=== PATIENT | male | born 2000 | race Caucasian/White ===

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

== ENCOUNTER 2018-02-08 14:16 | Observation (INO) | payer OTHER, BC, MEDICAID ==
[2018-02-08] MEDS: NS 1,000 ML IV ×3 (15:13→20:03)
[2018-02-08] MEDS: ONDANSETRON 4MG/2ML VIAL (J2405) IV (15:13)
[2018-02-08] MEDS: KETOROLAC 30 MG/ML VIAL (J1885) IV (15:13)
[2018-02-08 15:15] LABS: BASO % 0.4 % (0.0-1.0); EOS % 0.2 % (0.0-3.0); HEMATOCRIT 44.2 % (42.0-52.0); HEMOGLOBIN 15.6 g/dl (13.5-17.5); IMMATURE GRANULOCYTE % 0.3 % (0-3.0); LYMPH # 0.9 10^3/uL (1.5-6.5); LYMPH % 10.5 % (24.0-44.0); MEAN CORPUSCULAR HEMOGLOBIN 29.8 pg (27.0-33.0); MEAN CORPUSCULAR HGB CONC 35.3 g/dl (32.0-36.5); MEAN CORPUSCULAR VOLUME 84.5 fl (80.0-96.0); MONO # 1.1 10^3/uL (0.0-0.8); MONO % 12.4 % (0.0-5.0); NEUTROPHILS # 6.8 10^3/uL (1.8-7.7); NEUTROPHILS % 76.2 % (36.0-66.0); PLATELET COUNT, AUTOMATED 233 10^3/uL (150-450); RED BLOOD COUNT 5.23 10^6/uL (4.30-6.10); RED CELL DISTRIBUTION WIDTH 13.2 % (11.5-14.5)
[2018-02-08] MEDS: IPRATROPIUM 0.5MG/ALBUTEROL 2.5MG INH SOL UD 3ML (DUONEB)(J7620) NEB (15:25)
[2018-02-08 15:37] LABS: ALBUMIN 3.3 GM/DL (3.2-5.2); ALBUMIN/GLOBULIN RATIO 0.75 (1.00-1.93); ALKALINE PHOSPHATASE 77 U/L (45-117); ALT/SGPT 30 U/L (12-78); ANION GAP 9 MEQ/L (8-16); AST/SGOT 19 U/L (7-37); BILIRUBIN,DIRECT 0.1 MG/DL (0.0-0.2); BILIRUBIN,TOTAL 0.5 MG/DL (0.2-1.0); BLOOD UREA NITROGEN 18 MG/DL (7-18); CALCIUM LEVEL 8.7 MG/DL (8.5-10.1); CARBON DIOXIDE LEVEL 28 MEQ/L (21-32); CHLORIDE LEVEL 99 MEQ/L (98-107); CREATININE FOR GFR 1.25 MG/DL (0.70-1.30); GLUCOSE, FASTING 100 MG/DL (70-100); SODIUM LEVEL 136 MEQ/L (136-145); TOTAL PROTEIN 7.7 GM/DL (6.4-8.2)
[2018-02-08 15:37] LABS: LACTIC ACID SEPSIS PROTOCOL 1.5 MMOL/L (0.4-2.0)
[2018-02-08 15:42] LABS: ABG BASE EXCESS -0.8 (-2.0-2.0); ABG HCO3 22.4 MEQ/L (22.0-26.0); ABG O2 SATURATION 97.4 % (95.0-99.0); ABG PARTIAL PRESSURE CO2 32.8 mmHg (35.0-45.0); ABG PARTIAL PRESSURE O2 88.6 mmHg (75.0-100.0); ABG STANDARD HCO3 23.8 MEQ/L (22.0-26.0); ABG TOTAL CO2 23.4 MEQ/L (22.0-29.0); ABG pH (ARTERIAL) 7.452 UNITS (7.350-7.450)
[2018-02-08] MEDS: cefTRIAXone SOD 1 GM in D5W MINI-BAG PLUS 50 ML IV (17:04)
[2018-02-08] MEDS: AZITHROMYCIN INJ 500 MG, VIAL MATE ADAPTER 1 EACH in D5W 250 ML IV (17:04)
[2018-02-08] MEDS: ACETAMINOPHEN 325 MG TAB PO (17:36)
[2018-02-08] MEDS ORDERED: ONDANSETRON 4MG/2ML VIAL (J2405) IV (18:45)
[2018-02-09] MEDS: ACETAMINOPHEN TAB 650MG DOSE (2X325MG) PO (00:25)
[2018-02-09] MEDS ORDERED: IBUPROFEN 400 MG TAB PO (00:45)
[2018-02-09] MEDS: IPRATROPIUM 0.5MG/ALBUTEROL 2.5MG INH SOL UD 3ML (DUONEB)(J7620) NEB (01:11)
[2018-02-09] MEDS: NS 1,000 ML IV (05:12)
[2018-02-09] MEDS: cefTRIAXone SOD 1 GM in D5W MINI-BAG PLUS 50 ML IV (05:12)
[2018-02-09 06:09] LABS: HEMATOCRIT 38.3 % (42.0-52.0); MEAN CORPUSCULAR HEMOGLOBIN 29.6 pg (27.0-33.0); MEAN CORPUSCULAR VOLUME 84.5 fl (80.0-96.0); PLATELET COUNT, AUTOMATED 196 10^3/uL (150-450); RED BLOOD COUNT 4.53 10^6/uL (4.30-6.10); RED CELL DISTRIBUTION WIDTH 13.5 % (11.5-14.5); WHITE BLOOD COUNT 8.2 10^3/uL (4.0-10.0)
[2018-02-09 06:14] LABS: HEMOGLOBIN 13.4 g/dl (13.5-17.5)
[2018-02-09 06:31] LABS: ALBUMIN 2.6 GM/DL (3.2-5.2); ALKALINE PHOSPHATASE 64 U/L (45-117); ALT/SGPT 25 U/L (12-78); ANION GAP 7 MEQ/L (8-16); AST/SGOT 15 U/L (7-37); BILIRUBIN,TOTAL 0.2 MG/DL (0.2-1.0); BLOOD UREA NITROGEN 16 MG/DL (7-18); CALCIUM LEVEL 8.1 MG/DL (8.5-10.1); CARBON DIOXIDE LEVEL 28 MEQ/L (21-32); CHLORIDE LEVEL 105 MEQ/L (98-107); CREATININE FOR GFR 1.01 MG/DL (0.70-1.30); GLUCOSE, FASTING 97 MG/DL (70-100); POTASSIUM SERUM 4.1 MEQ/L (3.5-5.1); SODIUM LEVEL 140 MEQ/L (136-145); TOTAL PROTEIN 6.3 GM/DL (6.4-8.2)
[2018-02-09] MEDS: ENOXAPARIN 40 MG/0.4 ML SYRINGE (J1650) SC (08:05)
[2018-02-09] MEDS ORDERED: AZITHROMYCIN INJ 500 MG, VIAL MATE ADAPTER 1 EACH in D5W 250 ML IV (17:00)
== END 2018-02-09 11:30 | disposition home or self-care (01) ==
LOC: M ED 14:16 → M ED INP 18:32 → M MSPAV 19:30
DX: J15.7 Pneumonia due to Mycoplasma pneumoniae (principal); J96.01 Acute respiratory failure with hypoxia; F17.220 Nicotine dependence, chewing tobacco, uncomplicated
CPT/HCPCS: J0456

== ENCOUNTER 2018-04-03 12:48 | Emergency (ER) | payer OTHER | END 2018-04-03 15:29 | disposition home or self-care (01) | LOC: M ED 12:48 | DX: S69.91XA Unspecified injury of right wrist, hand and finger(s), initial encounter (principal); X50.0XXA Overexertion from strenuous movement or load, initial encounter; Y92.89 Other specified places as the place of occurrence of the external cause; J45.909 Unspecified asthma, uncomplicated; F17.200 Nicotine dependence, unspecified, uncomplicated | CPT/HCPCS: 73090 ==

== ENCOUNTER 2019-02-16 19:06 | Emergency (ER) | payer OTHER ==
[~2019-02-16] VITALS: Ht 182.9 cm; Wt 97.7 kg
[~2019-02-16 19:06] MED LIST changes: +AZIT500T2 PO; +CEFD1CAP8 PO; +VENTAER IN
[2019-02-16 19:40] LABS: BASO % 0.2 % (0.0-1.0); HEMATOCRIT 43.2 % (42.0-52.0); HEMOGLOBIN 15.5 g/dl (13.5-17.5); LYMPH # 1.2 10^3/uL (1.5-6.5); LYMPH % 6.4 % (24.0-44.0); MEAN CORPUSCULAR HEMOGLOBIN 30.5 pg (27.0-33.0); MEAN CORPUSCULAR HGB CONC 35.9 g/dl (32.0-36.5); MONO # 1.3 10^3/uL (0.0-0.8); MONO % 6.7 % (0.0-5.0); NEUTROPHILS # 16.1 10^3/uL (1.8-7.7); NEUTROPHILS % 86.2 % (36.0-66.0); PLATELET COUNT, AUTOMATED 285 10^3/uL (150-450); RED BLOOD COUNT 5.08 10^6/uL (4.30-6.10); WHITE BLOOD COUNT 18.7 10^3/uL (4.0-10.0)
[2019-02-16 20:05] LABS: ALBUMIN 3.6 GM/DL (3.2-5.2); ALT/SGPT 25 U/L (12-78); BILIRUBIN,DIRECT 0.3 MG/DL (0.0-0.2); BILIRUBIN,TOTAL 0.7 MG/DL (0.2-1.0); BLOOD UREA NITROGEN 14 MG/DL (7-18); CALCIUM LEVEL 9.3 MG/DL (8.5-10.1); CARBON DIOXIDE LEVEL 25 MEQ/L (21-32); CHLORIDE LEVEL 105 MEQ/L (98-107); CREATININE FOR GFR 1.03 MG/DL (0.70-1.30); GLUCOSE, FASTING 90 MG/DL (70-100); LIPASE 74 U/L (73-393); SODIUM LEVEL 138 MEQ/L (136-145); TOTAL PROTEIN 7.4 GM/DL (6.4-8.2)
[2019-02-16] MEDS ORDERED: ONDANSETRON 4MG/2ML VIAL (J2405) IV ONE (22:00)
[2019-02-16] MEDS ORDERED: PANTOPRAZOLE 40MG INJ (PROTONIX) (C9113) IV ONE (22:00)
[2019-02-16] MEDS ORDERED: SUCRALFATE 1 GM TAB PO ONE (22:00)
[2019-02-16] MEDS ORDERED: NS 1,000 ML IV ONE (22:00)
[2019-02-16] MEDS ORDERED: GI COCKTAIL 50ML BTL(HYOSCYAMINE/MAALOX/LIDOCAINE VISCOUS)(1:3:1) PO ONE (22:00)
[2019-02-16] MEDS ORDERED: ISOVUE-370 76% 100ML VIAL (Q9967) As Ordered ONE (22:28)
--- NOTE | 2019-02-16 23:18 | REPVR ---
EXAM: CT Abdomen and Pelvis With Contrast EXAM DATE/TIME: 02/16/2019 10:36 PM CLINICAL HISTORY: 18 years old, male; Abdominal pain; Generalized; Additional info: Bloody diarrhea 2mo, hematemesis TECHNIQUE: Imaging protocol: Axial computed tomography images of the abdomen and pelvis with intravenous contrast. Coronal and sagittal reformatted images were created and reviewed. Radiation optimization: All CT scans at this facility use at least one of these dose optimization techniques: automated exposure control; mA and/or kV adjustment per patient size (includes targeted exams where dose is matched to clinical indication); or iterative reconstruction. Contrast material: ISOVUE 370; Contrast volume: 100 ml; Contrast route: IV; COMPARISON: CT ABD PELVIS W/O CONTRAST 02/07/2016 2:36 PM FINDINGS: ABDOMEN: Liver: There is a diffuse decrease in hepatic parenchymal density, consistent with fatty infiltration. Gallbladder and bile ducts: Normal. No calcified stones. No ductal dilation. Pancreas: Normal. No ductal dilation. Spleen: There is mild splenomegaly with a maximum span of 13 centimeters. No focal abnormalities demonstrated. Adrenals: Normal. No mass. Kidneys and ureters: Cyst left kidney measures 1.7 cm. Stomach and bowel: Mucosal enhancement in the colon most pronounced in the rectosigmoid colon, a finding of uncertain significance. Clinical correlation to exclude colitis suggested. Appendix: There has been an appendectomy. PELVIS: Bladder: Unremarkable as visualized. Reproductive: The prostate gland demonstrates mild hyperplasia. ABDOMEN and PELVIS: Intraperitoneal space: Normal. No free air. No significant fluid collection. Bones/joints: No acute fracture. No dislocation. Soft tissues: Unremarkable. Vasculature: Normal. No abdominal aortic aneurysm. Lymph nodes: Ileocolic lymph nodes measure up to 11 mm. IMPRESSION: 1. There is a diffuse decrease in hepatic parenchymal density, consistent with fatty infiltration. 2. There is mild splenomegaly with a maximum span of 13 centimeters. No focal abnormalities demonstrated. 3. Mucosal enhancement in the colon most pronounced in the rectosigmoid colon, a finding of uncertain significance. Clinical correlation to exclude colitis suggested. 4. Mild prostatic hyperplasia. Electronically signed by: Maury Catalan On 02/16/2019 23:18:27 PM
[2019-02-17] MEDS ORDERED: CIPR-249 PO (00:54)
[2019-02-17] MEDS ORDERED: FLAG500T PO (00:54)
[2019-02-17] MEDS ORDERED: CIPROFLOXACIN 500 MG TAB PO ONE (01:00)
[2019-02-17] MEDS ORDERED: metroNIDAZOLE (FLAGYL) 500 MG TAB PO ONE (01:00)
[2019-02-17 01:07] VITALS: BP 139/79
[2019-02-17] MEDS ORDERED: ZOFR4TAB16 PO (01:24)
--- NOTE | 2019-02-17 10:38 | ED PDOC ---
Post-Departure Follow-Up dr kurtz faxed formal report of ct abd/p for fu Leonard Woody MD Feb 17, 2019 10:38
--- NOTE | 2019-02-17 19:22 | ECGEPIP ---
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
== END 2019-02-17 01:12 | disposition home or self-care (01) ==
LOC: M ED 19:06
DX: A09 Infectious gastroenteritis and colitis, unspecified (principal); K92.1 Melena; K92.0 Hematemesis; E86.0 Dehydration; N28.1 Cyst of kidney, acquired; N40.1 Benign prostatic hyperplasia with lower urinary tract symptoms; R16.1 Splenomegaly, not elsewhere classified; Z90.89 Acquired absence of other organs
CPT/HCPCS: 74177; 80048; 80076; 81001; 83690; 85025; 87507; 93005; 96361; 96374; 96375; 99284; C9113; J2405; Q9967

== ENCOUNTER 2019-03-16 07:10 | Emergency (ER) | payer OTHER ==
[~2019-03-16] VITALS: Ht 182.9 cm; Wt 90.9 kg
[~2019-03-16 07:10] MED LIST changes: +CIPR-249 PO; +ZOFR4TAB16 PO
[2019-03-16] MEDS ORDERED: ACET-683 PO (07:16)
--- NOTE | 2019-03-16 07:46 | REP ---
PA and lateral chest: Comparison is a 02/08/2018. The lung pastor are clear. The cardiac size is normal. The allen, mediastinum, and skeletal structures are unremarkable. Impression: Negative PA and lateral chest. The scattered patchy airspace disease identified previously has resolved. Electronically Signed by Matthias Walls MD 03/16/2019 07:38 A
--- NOTE | 2019-03-16 07:47 | REP ---
Left shoulder three views : There is no fracture or dislocation. Mineralization and joint spaces are normal. There are no calcifications or foreign bodies. Impression: Negative left shoulder . Electronically Signed by Matthias Walls MD 03/16/2019 07:39 A
[2019-03-16] MEDS ORDERED: PERCOCET 5MG/325MG TAB PO ONE (08:00)
[2019-03-16] MEDS ORDERED: ISOVUE-370 76% 100ML VIAL (Q9967) As Ordered ONE (08:02)
--- NOTE | 2019-03-16 08:40 | REP ---
CT of the chest with IV contrast: Comparison is the plain film study performed earlier today. There is no pneumothorax, hemothorax or pulmonary contusion. No clavicle, scapula, sternal, rib or vertebral fractures are identified. The thoracic aorta is unremarkable. There is no mediastinal hematoma. In the upper abdomen the visualized areas of the, pancreas, spleen, adrenals and renal upper poles are unremarkable. Impression: Essentially negative CT study of the chest. Electronically Signed by Matthias Walls MD 03/16/2019 08:31 A
[2019-03-16] MEDS ORDERED: PERC5TAB12 PO (08:41)
--- NOTE | 2019-03-16 08:43 | REP ---
CT of the cervical spine without IV contrast: Comparison is 2009. Axial images are acquired helical scanning and a reformatted sagittal and coronal projections. The vertebral body heights, interspacing alignment are normal. The facets are normally aligned. The prevertebral soft tissues are unremarkable. The skull base, C1 and C2 are unremarkable. There are no posterior element fractures. Impression: There is no fracture or listhesis. Electronically Signed by Matthias Walls MD 03/16/2019 08:34 A
[2019-03-16 09:06] VITALS: BP 141/90
== END 2019-03-16 09:07 | disposition home or self-care (01) ==
LOC: M ED 07:10
DX: S20.212A Contusion of left front wall of thorax, initial encounter (principal); S40.012A Contusion of left shoulder, initial encounter; V86.55XA Driver of 3- or 4- wheeled all-terrain vehicle (ATV) injured in nontraffic accident, initial encounter; Y92.830 Public park as the place of occurrence of the external cause; Z79.899 Other long term (current) drug therapy
CPT/HCPCS: 71046; 71260; 72125; 73030; 99283; Q9967

== ENCOUNTER 2019-10-08 15:19 | Emergency (ER) | payer OTHER ==
[~2019-10-08] VITALS: Ht 182.9 cm; Wt 100.0 kg
[~2019-10-08 15:19] MED LIST changes: +ACET-683 PO; -AZIT500T2 PO; +AZIT500T5 PO; +PERC5TAB12 PO
[2019-10-08 15:56] LABS: BASO % 0.5 % (0.0-1.0); EOS # 0.1 10^3/uL (0.0-0.5); EOS % 1.1 % (0.0-3.0); HEMATOCRIT 46.9 % (42.0-52.0); HEMOGLOBIN 16.5 g/dl (13.5-17.5); LYMPH # 1.8 10^3/uL (1.5-5.0); LYMPH % 21.5 % (24.0-44.0); MEAN CORPUSCULAR HEMOGLOBIN 29.8 pg (27.0-33.0); MEAN CORPUSCULAR HGB CONC 35.2 g/dl (32.0-36.5); MEAN CORPUSCULAR VOLUME 84.8 fl (80.0-96.0); MONO # 0.7 10^3/uL (0.0-0.8); MONO % 8.8 % (0.0-5.0); NEUTROPHILS # 5.6 10^3/uL (1.5-8.5); NEUTROPHILS % 67.7 % (36.0-66.0); PLATELET COUNT, AUTOMATED 310 10^3/uL (150-450); RED BLOOD COUNT 5.53 10^6/uL (4.30-6.10); WHITE BLOOD COUNT 8.3 10^3/uL (4.0-10.0)
[2019-10-08] MEDS ORDERED: NS 1,000 ML IV ONE (16:00)
--- NOTE | 2019-10-08 16:18 | REP ---
Chest x-ray: Two views. History: Syncope . Comparison study: March 16, 2019 . Findings: The lungs are well inflated and free of infiltrate. The pleural angles are sharp. The heart size is normal. Pulmonary vasculature is not increased. No significant bony abnormality is seen. Monitoring electrodes are noted. Impression: Negative chest x-ray. Electronically Signed by Merrick Alvarado MD 10/08/2019 04:10 P
[2019-10-08 16:19] LABS: INR 1.01
[2019-10-08 16:20] LABS: PARTIAL THROMBOPLASTIN TIME 25.3 SECONDS (25.0-38.4)
[2019-10-08 16:32] LABS: ALBUMIN 4.1 GM/DL (3.2-5.2); ALT/SGPT 50 U/L (12-78); BILIRUBIN,DIRECT 0.1 MG/DL (0.0-0.2); BILIRUBIN,TOTAL 0.5 MG/DL (0.2-1.0); BLOOD UREA NITROGEN 17 MG/DL (7-18); CALCIUM LEVEL 9.3 MG/DL (8.5-10.1); CARBON DIOXIDE LEVEL 25 MEQ/L (21-32); CHLORIDE LEVEL 106 MEQ/L (98-107); CREATININE FOR GFR 1.31 MG/DL (0.70-1.30); FREE T4 1.31 NG/DL (0.78-1.33); GLUCOSE, FASTING 83 MG/DL (70-100); SODIUM LEVEL 139 MEQ/L (136-145); TOTAL PROTEIN 7.4 GM/DL (6.4-8.2)
[2019-10-08 17:23] VITALS: BP 131/63
--- NOTE | 2019-10-08 22:07 | ECGEPIP ---
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
== END 2019-10-08 17:28 | disposition home or self-care (01) ==
LOC: EDBD 15:19 → M ED 15:19
DX: R55 Syncope and collapse (principal); J45.909 Unspecified asthma, uncomplicated; F90.9 Attention-deficit hyperactivity disorder, unspecified type; F41.1 Generalized anxiety disorder

== ENCOUNTER 2020-09-02 18:37 | Emergency (ER) | payer MEDICAID, OTHER, SELFPAY ==
[~2020-09-02] VITALS: Ht 182.9 cm; Wt 114.7 kg
[2020-09-02] MEDS ORDERED: NS 1,000 ML IV ONE (19:15)
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
[2020-09-02 19:29] LABS: BASO # 0.1 10^3/uL (0.0-0.2); BASO % 0.7 % (0.0-1.0); EOS # 0.3 10^3/uL (0.0-0.5); EOS % 3.8 % (0.0-3.0); HEMATOCRIT 46.8 % (42.0-52.0); HEMOGLOBIN 15.9 g/dl (13.5-17.5); LYMPH # 2.3 10^3/uL (1.5-5.0); LYMPH % 26.5 % (24.0-44.0); MEAN CORPUSCULAR VOLUME 85.4 fl (80.0-96.0); MONO # 0.9 10^3/uL (0.0-0.8); MONO % 10.8 % (0.0-5.0); NEUTROPHILS # 4.9 10^3/uL (1.5-8.5); NEUTROPHILS % 57.8 % (36.0-66.0); PLATELET COUNT, AUTOMATED 276 10^3/uL (150-450); RED BLOOD COUNT 5.48 10^6/uL (4.30-6.10); WHITE BLOOD COUNT 8.5 10^3/uL (4.0-10.0)
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
[2020-09-02] MEDS ORDERED: ISOVUE-370 76% 100ML VIAL As Ordered ONE (20:09)
[2020-09-02 20:22] VITALS: BP 146/91
== END 2020-09-02 20:34 | disposition home or self-care (01) ==
LOC: M ED 18:37
DX: S06.0X9A Concussion with loss of consciousness of unspecified duration, initial encounter (principal); S13.4XXA Sprain of ligaments of cervical spine, initial encounter; S33.5XXA Sprain of ligaments of lumbar spine, initial encounter; S20.219A Contusion of unspecified front wall of thorax, initial encounter; W22.09XA Striking against other stationary object, initial encounter; V00.228A Other sled accident, initial encounter; Y92.9 Unspecified place or not applicable; Y93.23 Activity, snow (alpine) (downhill) skiing, snowboarding, sledding, tobogganing and snow tubing; Y99.9 Unspecified external cause status; F17.200 Nicotine dependence, unspecified, uncomplicated
CPT/HCPCS: 70450; 71260; 72125; 72131; 80047; 85025; 86850; 86900; 86901; 96360; 99284; Q9967

== ENCOUNTER 2020-09-05 07:03 | Emergency (ER) | payer MEDICAID, SELFPAY ==
[~2020-09-05] VITALS: Ht 182.9 cm; Wt 115.7 kg
[2020-09-05] MEDS ORDERED: NS 1,000 ML IV ONE (07:30)
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
[2020-09-05 08:04] LABS: BASO # 0.1 10^3/uL (0.0-0.2); BASO % 0.7 % (0.0-1.0); EOS # 0.3 10^3/uL (0.0-0.5); EOS % 3.8 % (0.0-3.0); HEMATOCRIT 47.4 % (42.0-52.0); HEMOGLOBIN 16.7 g/dl (13.5-17.5); LYMPH # 1.9 10^3/uL (1.5-5.0); LYMPH % 25.8 % (24.0-44.0); MEAN CORPUSCULAR HEMOGLOBIN 30.3 pg (27.0-33.0); MEAN CORPUSCULAR HGB CONC 35.2 g/dl (32.0-36.5); MEAN CORPUSCULAR VOLUME 85.9 fl (80.0-96.0); MONO # 0.7 10^3/uL (0.0-0.8); MONO % 10.1 % (0.0-5.0); NEUTROPHILS # 4.3 10^3/uL (1.5-8.5); NEUTROPHILS % 59.2 % (36.0-66.0); PLATELET COUNT, AUTOMATED 279 10^3/uL (150-450); RED BLOOD COUNT 5.52 10^6/uL (4.30-6.10); WHITE BLOOD COUNT 7.3 10^3/uL (4.0-10.0)
[2020-09-05 08:09] LABS: APPEARANCE, URINE CLEAR (CLEAR); BACTERIA, URINE AUTO NEGATIVE (NEGATIVE); BILIRUBIN, URINE AUTO NEGATIVE (NEGATIVE); BLOOD, URINE BLOOD NEGATIVE (NEGATIVE); COLOR, URINE YELLOW (YELLOW); GLUCOSE, URINE (UA) AUTO NEGATIVE (NEGATIVE); KETONE, URINE AUTO NEGATIVE (NEGATIVE); LEUKOCYTE ESTERASE, URINE AUTO NEGATIVE (NEGATIVE); NITRITE, URINE AUTO NEGATIVE (NEGATIVE); PROTEIN, URINE AUTO NEGATIVE (NEGATIVE); RBC, URINE AUTO 0 /HPF (0-3); SPECIFIC GRAVITY URINE AUTO 1.021 (1.002-1.035); SQUAMOUS EPITHELIAL CELL UR AU 0 /HPF (0-6); UROBILINOGEN, URINE AUTO 0.2 mg/dL (0.0-2.0); WBC, URINE AUTO 2 /HPF (0-3)
[2020-09-05 08:33] LABS: ALBUMIN 3.7 GM/DL (3.2-5.2); ALT/SGPT 83 U/L (12-78); BILIRUBIN,TOTAL 0.4 MG/DL (0.2-1.0); BLOOD UREA NITROGEN 14 MG/DL (7-18); CALCIUM LEVEL 8.8 MG/DL (8.5-10.1); CARBON DIOXIDE LEVEL 27 MEQ/L (21-32); CHLORIDE LEVEL 107 MEQ/L (98-107); CREATININE FOR GFR 1.12 MG/DL (0.70-1.30); GLOMERULAR FILTRATION RATE > 60.0 (>60); GLUCOSE, FASTING 107 MG/DL (70-100); POTASSIUM SERUM 4.4 MEQ/L (3.5-5.1); SODIUM LEVEL 141 MEQ/L (136-145)
[2020-09-05] MEDS ORDERED: ISOVUE-370 76% 100ML VIAL As Ordered ONE (09:05)
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
[2020-09-05 10:05] VITALS: BP 144/91
--- NOTE | 2020-09-05 17:37 | ECGEPIP ---
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
== END 2020-09-05 10:07 | disposition home or self-care (01) ==
LOC: M ED 07:03
DX: F07.81 Postconcussional syndrome (principal); R10.9 Unspecified abdominal pain; H61.23 Impacted cerumen, bilateral; N28.1 Cyst of kidney, acquired; K76.0 Fatty (change of) liver, not elsewhere classified; J45.909 Unspecified asthma, uncomplicated; F17.200 Nicotine dependence, unspecified, uncomplicated
CPT/HCPCS: 36415; 69210; 70450; 74177; 80053; 81001; 85025; 93005; 96360; 99284; Q9967

== ENCOUNTER 2022-08-08 23:30 | Observation (INO) | payer MEDICAID, SELFPAY ==
[~2022-08-08] VITALS: Ht 182.9 cm; Wt 127.1 kg
[~2022-08-08 23:30] MED LIST changes: -CEFD1CAP8 PO; +CEFD300C41 PO
[2022-08-09 00:28] LABS: BASO % 0.3 % (0.0-1.0); EOS # 0.2 10^3/uL (0.0-0.5); EOS % 1.5 % (0.0-3.0); HEMOGLOBIN 14.9 g/dl (13.5-17.5); LYMPH % 17.8 % (24.0-44.0); MEAN CORPUSCULAR HEMOGLOBIN 29.9 pg (27.0-33.0); MEAN CORPUSCULAR HGB CONC 35.5 g/dl (32.0-36.5); MEAN CORPUSCULAR VOLUME 84.3 fl (80.0-96.0); MONO % 13.7 % (2.0-8.0); NEUTROPHILS # 7.5 10^3/uL (1.5-8.5); NEUTROPHILS % 66.1 % (36.0-66.0); PLATELET COUNT, AUTOMATED 274 10^3/uL (150-450); RED BLOOD COUNT 4.98 10^6/uL (4.30-6.10); WHITE BLOOD COUNT 11.3 10^3/uL (4.0-10.0)
[2022-08-09 00:31] LABS: MONO # 1.6 10^3/uL (0.0-0.8)
[2022-08-09 00:53] LABS: CK-MB VALUE MASS < 1.0 NG/ML (<3.6); LIPASE 30 U/L (12-53)
[2022-08-09 00:55] LABS: BILIRUBIN,DIRECT 0.2 MG/DL (<0.4)
[2022-08-09 00:56] LABS: THYROID STIMULATING HORMONE 2.953 uIU/ML (0.55-4.78)
[2022-08-09 00:57] LABS: FREE T4 1.18 NG/DL (0.89-1.76)
[2022-08-09] MEDS ORDERED: ISOVUE-370 76% 100ML VIAL As Ordered ONE (00:59)
[2022-08-09 01:00] LABS: ALBUMIN 3.6 G/DL (3.2-5.2); ALKALINE PHOSPHATASE 98 U/L (46-116); ALT/SGPT 83 U/L (7.0-40); AST/SGOT 30 U/L (<34); BILIRUBIN,TOTAL 0.4 MG/DL (0.3-1.2); BLOOD UREA NITROGEN 21 MG/DL (9-23); CALCIUM LEVEL 8.5 MG/DL (8.5-10.1); CARBON DIOXIDE LEVEL 21 MMOL/L (20-31); CHLORIDE LEVEL 106 MMOL/L (98-107); CPK CREATINE PHOSPHOKINASE 194 U/L (46-171); CREATININE FOR GFR 1.09 MG/DL (0.70-1.30); GLOMERULAR FILTRATION RATE > 60.0 (>60); GLUCOSE, FASTING 97 MG/DL (60-100); MB/CK RELATIVE INDEX 0.51 (< OR =4); POTASSIUM SERUM 4.1 MMOL/L (3.5-5.1); SODIUM LEVEL 139 MMOL/L (136-145); TOTAL PROTEIN 6.6 G/DL (5.7-8.2)
[2022-08-09 01:41] LABS: CK-MB VALUE MASS < 1.0 NG/ML (<3.6)
[2022-08-09 01:42] LABS: CPK CREATINE PHOSPHOKINASE 198 U/L (46-171)
[2022-08-09] MEDS ORDERED: GI COCKTAIL 50ML BTL(HYOSCYAMINE/MAALOX/LIDOCAINE VISCOUS)(1:3:1) PO ONE (02:25)
[2022-08-09 03:39] LABS: CK-MB VALUE MASS < 1.0 NG/ML (<3.6)
[2022-08-09 03:40] LABS: CPK CREATINE PHOSPHOKINASE 176 U/L (46-171); MB/CK RELATIVE INDEX 0.56 (< OR =4)
[2022-08-09] MEDS: NITROGLYCERIN 0.4MG SUBL TABLET SL PRN ×2 (04:31→04:37)
[2022-08-09 04:37] VITALS: BP 124/73
[2022-08-09] MEDS ORDERED: ENOXAPARIN 100MG/1ML SYRINGE (J1650 PER 10MG) SC ONE (05:15)
[2022-08-09] MEDS ORDERED: ENOXAPARIN 150MG/ML SYRINGE (J1650 PER 10MG) SC ONE (05:25)
[2022-08-09] MEDS ORDERED: KETOROLAC 30 MG/ML 1ML VIAL IV PRN (05:30)
[2022-08-09] MEDS ORDERED: ACETAMINOPHEN TAB 650MG DOSE (2X325MG) PO PRN (05:30)
[2022-08-09] MEDS ORDERED: HOME MED LIST COMPLETE! XX SCH (06:10)
[2022-08-09 07:28] LABS: CK-MB VALUE MASS < 1.0 NG/ML (<3.6)
[2022-08-09 07:29] LABS: CPK CREATINE PHOSPHOKINASE 150 U/L (46-171); MB/CK RELATIVE INDEX 0.66 (< OR =4)
[2022-08-09 07:30] LABS: BLOOD UREA NITROGEN 19 MG/DL (9-23); CALCIUM LEVEL 8.4 MG/DL (8.5-10.1); CARBON DIOXIDE LEVEL 22 MMOL/L (20-31); CHLORIDE LEVEL 106 MMOL/L (98-107); CREATININE FOR GFR 0.97 MG/DL (0.70-1.30); GLOMERULAR FILTRATION RATE > 60.0 (>60); GLUCOSE, FASTING 98 MG/DL (60-100); POTASSIUM SERUM 4.3 MMOL/L (3.5-5.1); SODIUM LEVEL 139 MMOL/L (136-145)
[2022-08-09 09:36] LABS: CHOLESTEROL LEVEL 97 MG/DL (<200); CHOLESTEROL RISK RATIO 3.59 (<5); LDL CHOLESTEROL 48.6 MG/DL (<100); NON-HDL-C 70 MG/DL; TRIGLYCERIDES LEVEL 107 MG/DL (<150)
[2022-08-09 14:59] VITALS: BP 127/73
[2022-08-09 15:41] LABS: AMPHETAMINES LEVEL URINE NEGATIVE (NEGATIVE); BARBITURATES URINE NEGATIVE (NEGATIVE); BENZODIAZEPINES URINE NEGATIVE (NEGATIVE); CANNABINOIDS URINE NEGATIVE (NEGATIVE); COCAINE METABOLITE URINE NEGATIVE (NEGATIVE); METHADONE URINE NEGATIVE (NEGATIVE); OPIATES URINE NEGATIVE (NEGATIVE); PHENCYCLIDINE URINE NEGATIVE (NEGATIVE)
[2022-08-09 20:17] VITALS: BP 131/78
[2022-08-10 00:09] VITALS: BP 132/82
[2022-08-10 04:28] VITALS: BP 120/70
[2022-08-10 07:03] LABS: BLOOD UREA NITROGEN 14 MG/DL (9-23); CALCIUM LEVEL 8.6 MG/DL (8.5-10.1); CARBON DIOXIDE LEVEL 25 MMOL/L (20-31); CHLORIDE LEVEL 107 MMOL/L (98-107); CREATININE FOR GFR 0.97 MG/DL (0.70-1.30); GLOMERULAR FILTRATION RATE > 60.0 (>60); GLUCOSE, FASTING 100 MG/DL (60-100); POTASSIUM SERUM 4.5 MMOL/L (3.5-5.1); SODIUM LEVEL 141 MMOL/L (136-145)
[2022-08-10 08:00] VITALS: BP 121/69
[2022-08-10] MEDS ORDERED: ACET1TAB55 PO (11:15)
== END 2022-08-10 12:14 | disposition home or self-care (01) ==
LOC: M ED 23:30 → M ED INP 23:31 → ENRESERV 08-09 13:17 → M PCU 08-09 13:47
PROVIDERS: ADMIT Internal Medicine; ATTEND Internal Medicine
DX: B33.22 Viral myocarditis (principal); I5A Non-ischemic myocardial injury (non-traumatic); K21.9 Gastro-esophageal reflux disease without esophagitis; R79.89 Other specified abnormal findings of blood chemistry
CPT/HCPCS: 36415; 71046; 71275; 78582; 80048; 80061; 80076; 80307; 82550; 82553; 83690; 84439; 84443; 84484; 85025; 85379; 85652; 86140; 87486; 87581; 87633; 87798; 93005; 93306; 96372; 96374; 99285; A9540; A9567; J1650; J1885

== ENCOUNTER → 2025-06-04 | Outpatient (RCR) ==
[~2025-06-04] MED LIST changes: +ACET1TAB55 PO; +CEFD1CAP9 PO; -CEFD300C41 PO
== END ==
LOC: M EMPSKH 05-10 13:23
PROVIDERS: ATTEND Family Medicine
DX: Z20.828 Contact with and (suspected) exposure to other viral communicable diseases (principal)